=== PATIENT | male | born 1985 | race Caucasian/White ===

== ENCOUNTER 2022-03-18 10:14 | Emergency (ER) | payer OTHER, SELFPAY ==
[2022-03-18 10:26] VITALS: BP 154/112; PULSE 73; RESP 16; TEMP 36.2; O2SAT 100
--- NOTE | 2022-03-18 10:58 | ED.GENADULT ---
HPI - General Adult General Chief complaint: Unspecified Stated complaint: refill Time Seen by Provider: 03/18/22 10:59 Source: patient, RN notes reviewed and old records reviewed Mode of arrival: ambulatory Limitations: no limitations History of Present Illness HPI narrative: 36-year-old male who presents to [facility] care with complaints of going out of town for 2 weeks and is unable to get medication refilled due to pharmacy thru [employer] [facility] is closed. Patient requesting refill till he can return from trip. Patient also reports that he was going to see his doctor to increase dose, feels increased anxiety lately. He is getting ready to be deployed next month to [facility], [place] for 6 months. MD complaint: Needs medication refill Related Data Home Medications Medication Instructions Recorded Confirmed escitalopram oxalate 5 mg tablet 5 mg PO DAILY 03/18/22 03/18/22 (Lexapro) trazodone 100 mg tablet 100 mg PO HS 03/18/22 03/18/22 Allergies Allergy/AdvReac Type Severity Reaction Status Date / Time No Known Allergies Allergy Verified 03/18/22 10:47 Review of Systems Review of Systems: CONSTITUTIONAL: Denies fever, chills, or sweats. EYES: Denies visual changes, redness, or discharge. ENT: Denies rhinorrhea, congestion, sore throat, or otalgia. CARDIOVASCULAR: Denies chest pain, palpitations, or edema. RESPIRATORY: Denies cough or dyspnea. GASTROINTESTINAL: Denies abdominal pain, nausea, vomiting, or diarrhea. GENITOURINARY: Denies dysuria or hematuria. SKIN: Denies rash or itching. MUSCULOSKELETAL: Denies back pain, joint pain, or myalgia. NEUROLOGIC: Denies headache, numbness, or weakness. PSYCHIATRIC: Positive for anxiety or depression. All systems reviewed & are unremarkable except as noted in HPI and below PMFSH Past Medical History Medical History (Updated 03/19/22 @ 21:13 by Yazmin Dolan NP) Anxiety and depression PTSD (post-traumatic stress disorder) Social History Social History (Updated 03/18/22 @ 11:17 by Yazmin Dolan NP) Smoking status: Never smoker Alcohol intake: current Alcohol use details: rare social Substance use: never Living arrangements: with family Gender identity (if verbalized by the patient): Male Comments At time of signature, agree with nursing past medical, surgical, social and family history. There is no relevant family history pertinent to the presenting complaint Exam Narrative: GENERAL: Well-appearing, well-nourished, and in no acute distress. HEAD: Normocephalic, atraumatic. EYES: PERRLA and EOMI. ENT: Nares clear, no rhinorrhea or epistaxis. Mucous membranes moist.TM's normal with good light reflex, throat pink with no lesions or exudates or any swelling present NECK: Supple.no lymphadenopathy CHEST: Clear to auscultation. No respiratory distress.SAO2 100% on room air HEART: Regular rate and rhythm. No murmur heard. Normal peripheral pulses. ABDOMEN: Soft, nontender, nondistended, normal active bowel sounds. EXTREMITIES: Normal range of motion. No edema. SKIN: Warm, dry, no rash. NEURO: No focal deficits. Alert and oriented x3. Course Course Level of Care: Express Care Visit Vital Signs Vital signs: Vital Signs Temperature 36.2 C L 03/18/22 10:26 Pulse Rate 73 03/18/22 10:26 Respiratory Rate 16 03/18/22 10:26 Blood Pressure 154/112 H 03/18/22 10:26 Pulse Oximetry 100 03/18/22 10:26 Oxygen Delivery Room Air 03/18/22 10:26 Temperature 36.2 C L 03/18/22 10:26 Pulse Rate 73 03/18/22 10:26 Respiratory Rate 16 03/18/22 10:26 Blood Pressure 150/110 H 03/18/22 11:25 Pulse Oximetry 100 03/18/22 10:26 Oxygen Delivery Room Air 03/18/22 10:26 Medical Decision Making Differential Diagnosis Differential Diagnosis: anxiety, need for refill of medication, visit for refill of medication, Medical Records Medical records reviewed: Yes I reviewed the external patient's medical records. Vital Signs Vital Signs: V
[2022-03-18 11:25] VITALS: BP 150/110
== END 2022-03-18 11:27 | disposition home or self-care (01) ==
PROVIDERS: Emergency Provider Registered Nurse
DX: F41.9 Anxiety disorder, unspecified (principal); Z76.0 Encounter for issue of repeat prescription
CPT/HCPCS: 99211; G0463

== ENCOUNTER 2023-08-24 00:18 | Emergency (ER) | payer OTHER, SELFPAY ==
--- NOTE | ~2023-08-24 | CT_ITS ---
Non-contrast Head CT History: Status post fall Technique: Axial non-contrast imaging of the brain was performed. Dose reduction technique was used on this scan by utilizing automated exposure control and iterative reconstruction technique. The dose -length product (DLP) was 1135.00 mGy-cm. Findings: There is no evidence of intracranial hemorrhage, mass lesion, or acute infarct. Brain par enchyma appears normal. The ventricles and subarachnoid spaces are normal in size. The calvarium ap pears normal. The visualized paranasal sinuses and mastoid air cells are clear. Impression: No significant abnormality seen. Reviewed, dictated and finalized at location . ER DELIVERER Impression: No significant abnormality seen.
--- NOTE | ~2023-08-24 | CT_ITS ---
Noncontrast CT scan of the cervical spine Technique: Multiple contiguous axial [address] images of the cervical spine were obtained and rec onstructed in 2D sagittal and coronal planes on the acquisition scanner. Dose reduction technique was used on this scan by utilizing automated exposure control, adjustment of the mA and/or kV according to patient size. The dose-length product (DLP) was 497.53 mGy-cm. Clinical History: Pain Findings: No fractures or dislocations. Unremarkable visualized bony structures. The intervertebral disc spaces are preserved. No prevertebral soft tissue swelling. Impression: No fracture or subluxation of the cervical spine. Reviewed, dictated and finalized at location . WRITER Impression: No fracture or subluxation of the cervical spine.
[2023-08-24 00:21] VITALS: BP 155/118; PULSE 105; RESP 18; TEMP 35.9; O2SAT 98
--- NOTE | 2023-08-24 00:27 | ECG_ITS ---
Measurements Intervals [place] Rate: 99 P: 45 LA: 150 QRS: 25 QRSD: 106 T: 38 QT: 329 QTc: 422 Interpretive Statements SINUS RHYTHM NONSPECIFIC ST ABNORMALITY ABNORMAL ECG NO PREVIOUS ECG AVAILABLE FOR COMPARISON Electronically Signed On 08-24-2023 15:07:16 [employer] by Marcin Lombardo M.D.
[2023-08-24 00:40] LABS: Basophils Percent Auto 0.6 % (0.2-1.2); Eosinophils Absolute Auto 0.1 K/mm3 (0-0.3); Eosinophils Percent Auto 1.6 % (0-4.4); Hematocrit 50.2 % (42.0-52.0); Hemoglobin 16.8 g/dL (14.0-18.0); Immature Granulocyte Absolute 0.02 K/mm3 (0.00-0.031); Immature Granulocyte Percent A 0.3 % (0-0.5); Lymphocytes Absolute Auto 1.82 K/mm3 (0.9-3.2); Lymphocytes Percent Auto 26.8 % (18.3-44.2); Mean Corpuscular HGB Conc 33.5 g/dl (32-36); Mean Corpuscular Hemoglobin 33.4 pg (26-34); Mean Corpuscular Volume 99.8 fl (80-100); Mean Platelet Volume 9.1 fl (7.4-10.4); Monocytes Absolute Auto 0.5 K/mm3 (0.1-0.6); Monocytes Percent Auto 6.6 % (2.6-8.5); Neutrophils Absolute Auto 4.4 K/mm3 (1.3-6.7); Neutrophils Percent Auto 64.1 % (45.5-73.1); Platelet Count Result 221 k/mm3 (150-375); Red Blood Count 5.03 M/mm3 (4.6-6.20); Red Cell Distribution Width 11.7 % (11.5-14.5); White Blood Count 6.8 K/mm3 (4.5-10.0)
[2023-08-24 00:51] LABS: Alanine Aminotransferase 131 U/L (6-50); Albumin Level 4.6 g/dL (3.5-5.1); Alkaline Phosphatase 92 U/L (38-126); Anion Gap 9 mmol/L (8-16); Aspartate Amino Transferase 129 U/L (17-59); Bilirubin,Total 0.4 mg/dL (0.2-1.3); Blood Urea Nitrogen 20 mg/dL (9-20); Calcium 9.4 mg/dL (8.4-10.2); Carbon Dioxide 27 mmol/L (22-30); Chloride 106 mmol/L (98-107); Estimated CRCL calculation 87 ml/min; Estimated Glomerular Filt Rate > 60; Glucose 115 mg/dL (65-110); Potassium 4.2 mmol/L (3.4-5.0); Sodium 142 mmol/L (137-145)
--- NOTE | 2023-08-24 03:04 | ED.FALL ---
HPI - Fall General Chief Complaint: Fall Stated Complaint: HEAD INJURY, +ETOH Time Seen by Provider: 08/24/23 01:02 Source: patient Limitations: no limitations History of Present Illness HPI Narrative: Patient presents to the emergency department accompanied by police for a head injury. Patient notes just prior to arrival he hit his head on something however is unsure as to what. Patient is unsure if he had a loss of consciousness but does not believe so. Patient thinks he may have hit his head on a branch. Patient admits to consuming alcohol tonight approximately a 6 pack of beer. Patient denies any significant pain at this time, his to have small amount of discomfort where his head on the left side. Patient does not know when his last tetanus shot was. Patient admits to being ambulatory without any difficulties. Patient denies any pain is in extremities. Patient denies illicit drug use. Patient denies vision changes, difficulty swelling, loose or chipped teeth, hearing changes, confusion, neck pain, numbness, weakness, paresthesias, abdominal pain, nausea, vomiting, diarrhea, urinary incontinence, stool incontinence, cough, fever, back pain. Patient denies use of blood thinners. Related Data Home Medications Medication Instructions Recorded Confirmed escitalopram oxalate 5 mg tablet 5 mg PO DAILY 03/18/22 03/18/22 (Lexapro) trazodone 100 mg tablet 100 mg PO HS 03/18/22 03/18/22 Allergies Allergy/AdvReac Type Severity Reaction Status Date / Time No Known Allergies Allergy Verified 08/24/23 00:27 Review of Systems Review of Systems: A 10 system review of systems was completed on the patient and is negative except for what is stated in the HPI. Nursing and ancillary documentation was reviewed. [facility] Past Medical History Medical History (Updated 08/24/23 @ 03:09 by Gerardo Thompson DO) Anxiety and depression PTSD (post-traumatic stress disorder) Social History Social History (Updated 03/18/22 @ 11:17 by Yazmin Dolan NP) Smoking status: Never smoker Alcohol intake: current Alcohol use details: rare social Substance use: never Living arrangements: with family Gender identity (if verbalized by the patient): Male Comments At time of signature, I have reviewed and agree with nursing past medical, surgical, social and family history unless otherwise noted. Please see the nursing chart for further information. There is no relevant family history pertinent to the presenting complaint. Exam Narrative: CONST: No acute distress. Well nourished. HENMT: Head is normocephalic. Moist mucous membranes. No posterior oropharynx erythema. Small hemostatic abrasion over the left parietal region with scant surrounding edema, no palpable bony deformities. EYES: No conjunctival icterus, injection, or pallor. PERRL. NECK: No meningeal signs. RESP: Able to speak in full sentences. Normal respiratory effort. CTAB. CARDIO: Regular rate. Regular rhythm. 2+ DP and radial pulses bilaterally. GI: Nondistended. No tenderness to palpation. Soft. : No CVA tenderness to palpation. SKIN: No rashes or lesions noted on exposed skin. NEURO: Oriented x3. Moves all extremities. No focal neurological deficits. Extraocular motions intact. EXTREM/MSK/BACK: No pedal edema. No midline vertebral tenderness to palpation or step-offs. No extremity tenderness to palpation or deformities. PSYCH: Normal affect. Course Vital Signs Vital signs: Vital Signs Temperature 96.7 F L 08/24/23 00:21 Pulse Rate 105 H 08/24/23 00:21 Respiratory Rate 18 08/24/23 00:21 Blood Pressure 155/118 H 08/24/23 00:21 Pulse Oximetry 98 08/24/23 00:21 Oxygen Delivery Room Air 08/24/23 00:21 Temperature 96.7 F L 08/24/23 00:21 Pulse Rate 105 H 08/24/23 00:21 Respiratory Rate 18 08/24/23 00:21 Blood Pressure 155/118 H 08/24/23 00:21 Pulse Oximetry 98 08/24/23 00:21 Oxygen Delivery Room Air
[2023-08-24 03:07] VITALS: BP 130/75; PULSE 86; RESP 21; O2SAT 95
[2023-08-24 03:08] LABS: Ethanol 283 mg/dL (<10)
--- NOTE | 2023-08-24 03:12 | PC.NURSE ---
edp dr. de la cruz confirmed pt okay to be fit for confinement.
[2023-08-24 03:21] VITALS: BP 127/72; PULSE 88; RESP 18; O2SAT 95
== END 2023-08-24 03:26 ==
PROVIDERS: Emergency Provider Student in an Organized Health Care Education/Training Program
DX: S00.03XA Contusion of scalp, initial encounter (principal); F10.920 Alcohol use, unspecified with intoxication, uncomplicated; F41.9 Anxiety disorder, unspecified; F32.A Depression, unspecified; W22.8XXA Striking against or struck by other objects, initial encounter
CPT/HCPCS: 36415; 70450; 72125; 80053; 80307; 85025; 93005; 99284; A9270